=== PATIENT | male | born 1955 | race Caucasian/White ===

== ENCOUNTER → 2016-06-13 | Outpatient (CLI) | payer OTHER ==
--- NOTE | 2016-06-14 02:44 | REP ---
Clinical: Chest pain. Psoriasis . Comparison: 04/30/2002 . Technique: PA and lateral. Findings: The mediastinum and cardiac silhouette are normal. The lung tapia are clear and without acute consolidation, effusion, or pneumothorax. The skeletal structures are intact and normal. Impression: 1. No acute cardiopulmonary process. Signed by Lamont Paz MD 06/14/2016 02:35 A
== END ==
LOC: M WUC 11:31
PROVIDERS: ATTEND Nurse Practitioner Family
DX: Z79.899 Other long term (current) drug therapy (principal); L40.8 Other psoriasis

== ENCOUNTER → 2017-09-22 | Outpatient (CLI) | payer OTHER | LOC: M WUC 09:14 | DX: Z51.81 Encounter for therapeutic drug level monitoring (principal); Z79.899 Other long term (current) drug therapy; L40.0 Psoriasis vulgaris | CPT/HCPCS: 71046 ==

== ENCOUNTER 2017-12-29 10:12 | Day surgery (SDC) | payer OTHER ==
[2017-12-29] MEDS: NS 1,000 ML IV (06:00)
[2017-12-29] MEDS ORDERED: PROPOFOL 500 MG/50 ML VIAL As Ordered (11:46)
[2017-12-29] MEDS ORDERED: LIDOCAINE 2% INJ 100 MG/5 ML SDV (FOR ANES.) As Ordered (11:46)
== END 2017-12-29 12:34 | disposition home or self-care (01) ==
LOC: M OPP 10:12
DX: Z12.11 Encounter for screening for malignant neoplasm of colon (principal); Z86.010 Personal history of colon polyps; K64.0 First degree hemorrhoids; E78.00 Pure hypercholesterolemia, unspecified; Z79.82 Long term (current) use of aspirin; Z79.899 Other long term (current) drug therapy; Z98.61 Coronary angioplasty status
CPT/HCPCS: 45378

== ENCOUNTER 2023-06-26 09:25 | Day surgery (SDC) | payer MEDICARE ==
[~2023-06-26] VITALS: Ht 167.6 cm; Wt 89.4 kg
[~2023-06-26 09:25] MED LIST: ASPI81TA86 PO; BAYE81TA7 PO; CO Q200C10 PO; HUMI40KI2 SC; LISI20TA33 PO; METO1TAB32 PO; MULTCAP PO; SIMV20TA22 PO; THERTAB52 PO
[2023-06-26] MEDS: NS 1,000 ML IV ONE (09:45)
[2023-06-26] MEDS ORDERED: propofoL 200 MG/20 ML VIAL As Ordered ONE (11:24)
[2023-06-26] MEDS ORDERED: LIDOCAINE 2% 100MG/5ML SDV (FOR ANES.) As Ordered ONE (11:24)
[2023-06-26 11:41] VITALS: TEMP 97.1
[2023-06-26 11:55] VITALS: BP 116/66; O2SAT 94
== END 2023-06-26 11:58 | disposition home or self-care (01) ==
LOC: M OPP 09:25
PROVIDERS: ATTEND Internal Medicine Gastroenterology
DX: Z12.11 Encounter for screening for malignant neoplasm of colon (principal); K64.0 First degree hemorrhoids; K57.30 Diverticulosis of large intestine without perforation or abscess without bleeding; Z86.010 Personal history of colon polyps; I10 Essential (primary) hypertension; E78.00 Pure hypercholesterolemia, unspecified; Z95.5 Presence of coronary angioplasty implant and graft; Z79.899 Other long term (current) drug therapy; Z87.891 Personal history of nicotine dependence; Z88.8 Allergy status to other drugs, medicaments and biological substances